=== PATIENT | male | born 1995 | race Caucasian/White ===

== ENCOUNTER 2020-02-17 12:08 | Emergency (ER) | payer OTHER, SELFPAY ==
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
[2020-02-17 12:30] VITALS: BP 134/81; PULSE 88; RESP 16; TEMP 37.1; O2SAT 98
== END 2020-02-17 12:57 | disposition home or self-care (01) ==
PROVIDERS: Emergency Provider Nurse Practitioner Family; PCP Family Medicine Adolescent Medicine
DX: R32 Unspecified urinary incontinence (principal)
CPT/HCPCS: 81003; 99212; G0463

== ENCOUNTER 2020-10-15 11:11 | Outpatient (CLI) | payer OTHER, SELFPAY ==
[2020-10-15 11:43] LABS: Hematocrit 40.1 % (42.0-52.0); Hemoglobin 13.5 g/dL (14.0-18.0); Mean Corpuscular HGB Conc 33.7 g/dl (32-36); Mean Corpuscular Hemoglobin 33.5 pg (26-34); Mean Corpuscular Volume 99.5 fl (80-100); Mean Platelet Volume 9.8 fl (7.4-10.4); Platelet Count Result 298 k/mm3 (150-375); Red Blood Count 4.03 M/mm3 (4.6-6.20); Red Cell Distribution Width 12.2 % (11.5-14.5); White Blood Count 7.2 K/mm3 (4.5-10.0)
[2020-10-15 11:57] LABS: Alanine Aminotransferase 70 U/L (4-50); Albumin Level 4.5 g/dL (3.5-5.1); Alkaline Phosphatase 49 U/L (38-126); Anion Gap 6 mmol/L (8-16); Aspartate Amino Transferase 27 U/L (17-59); Bilirubin,Total 0.5 mg/dL (0.2-1.3); Blood Urea Nitrogen 13 mg/dL (9-20); Calcium 9.9 mg/dL (8.4-10.2); Carbon Dioxide 31 mmol/L (22-30); Chloride 102 mmol/L (98-107); Estimated Glomerular Filt Rate > 60; Glucose 95 mg/dL (75-110); Potassium 4.4 mmol/L (3.4-5.0); Sodium 139 mmol/L (137-145)
[2020-10-15 12:30] LABS: Iron 81 ug/dL (49-181)
[2020-10-15 12:40] LABS: Percent Iron Saturation 25 % (20-50)
[2020-10-15 13:03] LABS: Folic Acid 9.1 ng/mL (2.76->20)
== END 2020-10-15 11:12 | disposition home or self-care (01) ==
LOC: ANHLAB 11:14
PROVIDERS: Family Provider Family Medicine Adolescent Medicine; PCP Family Medicine Adolescent Medicine; Visit Provider Nurse Practitioner Family
DX: F10.10 Alcohol abuse, uncomplicated (principal)
CPT/HCPCS: 36415; 80053; 82607; 82746; 83540; 83550; 85027

== ENCOUNTER → 2020-10-26 01:13 | Outpatient (CLI) | payer OTHER, SELFPAY ==
[2020-10-26 18:28] LABS: SARS-CoV-2 RNA PCR Negative
== END ==
PROVIDERS: PCP Family Medicine Adolescent Medicine; Visit Provider Internal Medicine Gastroenterology
DX: Z01.812 Encounter for preprocedural laboratory examination (principal); Z20.822 Contact with and (suspected) exposure to COVID-19
CPT/HCPCS: C9803; U0003; U0005

== ENCOUNTER 2020-10-29 01:30 | Day surgery (SDC) | payer OTHER, SELFPAY ==
[2020-10-22 09:56] VITALS: BMI 24.5
--- NOTE | 2020-10-29 09:53 | WPDANESEPPF ---
Anes - Initial Pre Proc Eval Procedure: Operation Date: 10/29/20 14:15 Proposed Procedures p Esophagogastroduodenoscopy - Braden Connolly MD Date/Time: 10/29/20 09:53 Surgeon: Braden Connolly MD Pre Op Diagnosis: nausea, vomitting Patient Data Age: 25 Gender: M Height: 1.8 m Weight: 80 kg Allergies Allergy/AdvReac Type Severity Reaction Status Date / Time venom-honey bee Allergy Unknown Difficulty Verified 10/29/20 13:02 Breathing Home Medications Medication Instructions Recorded Confirmed Type clonazepam 1 mg tablet 1 mg PO TID tablet 10/13/20 10/29/20 History Patient hx anesthesia problems: none Family hx anesthesia problems: none PMFSH Past Medical History Medical History (Updated 10/15/20 @ 11:24 by GABY BarahonaC) Abdominal pain Alcohol abuse Anxiety Elevated liver enzymes Nausea and vomiting Family History Family History (Updated 10/15/20 @ 10:34 by Comfort Durant [facility]) Father Alcoholism Sibling Brain cancer Social History Social History (Updated 10/15/20 @ 10:35 by Comfort Durant [facility]) Smoking packs per day: 1 Smoking cigarettes per day: 20.0 Years smoked: 14 Smoking pack-years: 14.00 Smoking status: Current every day smoker Tobacco type: cigarettes Alcohol intake: former Substance use: current Substance use type: marijuana Living arrangements: with family Gender identity (if verbalized by the patient): Male Spiritual care concerns: No Agree to blood products: Yes Anes - Eval Final PreProcedure Day of Procedure 10/29/20 09:53 Patient weight: normal Heart: regular rate and rhythm Lungs: clear to auscultation and normal air movement Airway: Mallampati scale class II Neurological: alert and oriented Last oral intake: >/= 8 hours ASA classification: III Emergent: no Anesthetic plan: proceed Anesthesia type and monitoring: general GIVS Informed Consent: The patient's anesthetic plan and its attendant risks and benefits were discussed with the patient/family/POA. Questions were solicited and answers provided to the satisfaction of the patient/family/POA.
[2020-10-29 13:05] VITALS: BP 106/70; PULSE 50; RESP 16; TEMP 37.3; O2SAT 100
[2020-10-29] MEDS: LACTATED RINGERS 1,000 ML 150 ML IV CONT (13:16)
--- NOTE | 2020-10-29 14:40 | WPDHPUPDATE1 ---
History and Physical Update Update Date/Time: 10/29/20 14:40 History and Physical has been reviewed, including an updated exam of the patient. There are NO changes in the patient's condition. Risks, benefits, and alternatives have been discussed and questions answered. Patient agrees to proceed with procedure.
[2020-10-29] MEDS: BENZOCAINE (*SP) 60 ML SPRAY CAN (HURRICAINE) 1 SPRAY MUCOUS MEM (14:44)
[2020-10-29 14:57] VITALS: BP 100/62; PULSE 52; RESP 19; O2SAT 100
[2020-10-29 15:07] VITALS: BP 104/62; PULSE 75; RESP 18; O2SAT 100
[2020-10-29 15:17] VITALS: BP 128/88; PULSE 56; RESP 17; O2SAT 100
== END 2020-10-29 15:30 | disposition home or self-care (01) ==
PROVIDERS: PCP Family Medicine Adolescent Medicine; Visit Provider Internal Medicine Gastroenterology
PROC: 0DJ08ZZ Inspection of Upper Intestinal Tract, Via Natural or Artificial Opening Endoscopic (ICD-10-PCS; CPT 43235; principal; 2020-10-29 14:15)
DX: R11.2 Nausea with vomiting, unspecified (principal); R10.13 Epigastric pain; F41.9 Anxiety disorder, unspecified; F17.210 Nicotine dependence, cigarettes, uncomplicated; F12.90 Cannabis use, unspecified, uncomplicated; F10.10 Alcohol abuse, uncomplicated
CPT/HCPCS: 43239; 88305; C9803; J2001; J2704; J7120; U0003; U0005

== ENCOUNTER 2021-08-26 14:10 | Emergency (ER) | payer OTHER, SELFPAY ==
[2021-08-26 14:21] VITALS: BP 141/83; PULSE 102; RESP 14; TEMP 36.6; O2SAT 100
--- NOTE | 2021-08-26 14:24 | ECG_ITS ---
Measurements Intervals [place] Rate: 89 P: 55 TX: 128 QRS: 70 QRSD: 74 T: 64 QT: 345 QTc: 420 Interpretive Statements SINUS RHYTHM WITH SINUS ARRHYTHMIA DELAYED PRECORDIAL R/S TRANSITION MINIMAL Q WAVES- INFERIOR LEADS BORDERLINE ECG Electronically Signed On 08-26-2021 16:57:48 [employer] by Benjamin Pedraza D.O.
--- NOTE | 2021-08-26 17:44 | PC.NURSE ---
Patient ambulated from ED with family member. Reports that they do not wish to wait any longer. Alert and oriented at this time. Nothing further to report.
== END 2021-08-27 02:29 | disposition left against medical advice (07) ==
LOC: ANHED 18:16
PROVIDERS: PCP Family Medicine Adolescent Medicine
DX: Z53.21 Procedure and treatment not carried out due to patient leaving prior to being seen by health care provider (principal)
CPT/HCPCS: 93005; 99199

== ENCOUNTER 2021-11-04 07:54 | Outpatient (CLI) | payer OTHER, SELFPAY ==
--- NOTE | ~2021-11-04 | MMUS_ITS ---
EXAMINATION: MM diagnostic mammo unilat RT, US breast RT limited HISTORY: Palpable right breast lump. Tenderness. TECHNIQUE: Digital diagnostic right mammogram with comparison left MLO view. CAD analysis was submitt ed and interpreted. High resolution Limited right breast ultrasound was performed. COMPARISON: None BREAST PARENCHYMAL COMPOSITION: Breast composed of scattered areas of fibroglandular density FINDINGS: MAMMOGRAPHIC FINDINGS: There is bilateral asymmetric gynecomastia, right greater than left. No suspicious masses, calcificat ions or architectural distortion. ULTRASOUND: Limited right breast ultrasound: Normal heterogeneous echotexture without focal solid or cystic mass. IMPRESSION: 1. No evidence for malignancy in the right breast. Gynecomastia. 2. Recommend follow-up clinical management for gynecomastia. BI-RADS Category 2: Benign finding(s). Reviewed, dictated and finalized at location A. [facility] IMPRESSION: 1. No evidence for malignancy in the right breast. Gynecomastia. 2. Recommend follow-up clinical management for gynecomastia. BI-RADS Category 2: Benign finding(s).
== END 2021-11-04 07:55 ==
PROVIDERS: PCP Family Medicine Adolescent Medicine; Visit Provider Physician Assistant
DX: N63.10 Unspecified lump in the right breast, unspecified quadrant (principal)
CPT/HCPCS: 76642; 77065

== ENCOUNTER 2021-11-29 09:15 | Outpatient (CLI) | payer OTHER, SELFPAY ==
--- NOTE | ~2021-11-29 | US_ITS ---
US right upper quadrant INDICATION: Abnormal liver enzymes. PROCEDURE: Realtime right upper abdominal ultrasound. COMPARISON: No prior studies for comparison. FINDINGS: The pancreas is normal without focal mass or pancreatic ductal dilation. Liver echotexture is normal without focal mass or intrahepatic biliary dilatation. There is normal directional flow i n the portal vein. The gallbladder is normal without stones, gallbladder wall thickening or pericholecystic fluid. Comm on bile duct measures 3 mm. No sonographic Camilo's sign. IMPRESSION: 1: Normal limited abdominal ultrasound. Reviewed, dictated and finalized at location B.
== END 2021-11-29 09:16 | disposition home or self-care (01) ==
LOC: ANHIMG 09:19
PROVIDERS: PCP Family Medicine Adolescent Medicine; Visit Provider Physician Assistant
DX: F10.10 Alcohol abuse, uncomplicated (principal); R74.8 Abnormal levels of other serum enzymes
CPT/HCPCS: 76705